=== PATIENT | male | born 1965 | race Two or more races ===

== ENCOUNTER 2025-06-06 04:11 | Inpatient (IN) | payer BC ==
[~2025-06-06] VITALS: Ht 160 cm; Wt 81.6 kg
[2025-06-06] MEDS ORDERED: HYDROMORPHONE 1 MG/1 ML DISP.SYRIN ONE ×2 (05:06→09:33)
[2025-06-06 05:07] LABS: PLATELET COUNT (AUTO) 167 K/uL (152-348); RED BLOOD CELL COUNT(AUTO) 4.33 MIL/uL (4.06-5.63); RED CELL DISTRIBUTION WIDTH 13.4 % (12.1-16.2); WHITE BLOOD COUNT (AUTO) 9.3 K/uL (3.6-10.2)
[2025-06-06] MEDS ORDERED: VANCOMYCIN HCL 500 MG VIAL ONE (05:07)
[2025-06-06] MEDS ORDERED: VANCOMYCIN IV 200 ML ONE (05:07)
[2025-06-06] MEDS ORDERED: CIPR500T5 PO (05:08)
[2025-06-06] MEDS ORDERED: ALPR1TAB7 PO (05:08)
[2025-06-06] MEDS ORDERED: ATOR40TA PO (05:08)
[2025-06-06] MEDS ORDERED: CLIN300C12 PO (05:08)
[2025-06-06] MEDS: HYDROMORPHONE 1 MG/1 ML DISP.SYRIN IV ONE ×2 (05:15→09:36)
[2025-06-06] MEDS: VANCOMYCIN IV 1,500 MG in IV DEXTROSE 5% 250 ML IV ONE (05:21)
[2025-06-06 05:32] LABS: CREATININE 1.2 mg/dL (0.6-1.3); SODIUM SERUM 139.0 mmol/L (136-145); UREA NITROGEN, BLOOD 12.0 mg/dL (7-18)
[2025-06-06 05:38] LABS: ASPARTATE AMINOTRANSFERASE 21.0 U/L (15-37); TOTAL PROTEIN, SERUM 7.4 g/dL (6.4-8.2)
[2025-06-06] MEDS ORDERED: SWABABLE VALVE TRANSFER SET EA MC ONE (07:01)
[2025-06-06] MEDS ORDERED: IOHEXOL 300MG/ML 100 ML INFUS..BTL ONE (07:01)
[2025-06-06] MEDS ORDERED: IV NORMAL SALINE 250 ML IV ONE (07:01)
[2025-06-06] MEDS ORDERED: ONDANSETRON 4 MG/2 ML VIAL ONE (09:33)
[2025-06-06] MEDS: ONDANSETRON 4 MG/2 ML VIAL IV ONE (09:34)
[2025-06-06 10:15] VITALS: BP 130/78
[2025-06-06] MEDS ORDERED: ONDANSETRON 4 MG/2 ML VIAL IV PRN (10:30)
[2025-06-06] MEDS ORDERED: ACETAMINOPHEN 325 MG TABLET PO PRN (10:30)
[2025-06-06] MEDS ORDERED: MAGNESIUM HYDROXIDE 30 ML LIQUID UDC PO PRN (10:30)
[2025-06-06] MEDS: ENOXAPARIN SODIUM 40 MG/0.4 ML DISP.SYRIN SQ SCH (11:28)
[2025-06-06 12:00] VITALS: BP 140/73; TEMP 97.8; O2SAT 97
[2025-06-06] MEDS ORDERED: ERGO500040 PO (12:09)
[2025-06-06] MEDS ORDERED: PARO30TA4 PO (12:09)
[2025-06-06 16:00] VITALS: BP 111/64; TEMP 98.6; O2SAT 97
[2025-06-06] MEDS: ATORVASTATIN 40 MG TABLET PO SCH (18:52)
[2025-06-06] MEDS: ASPIRIN EC 81 MG TABLET.DR PO SCH (18:52)
[2025-06-06 19:30] VITALS: BP 122/75; TEMP 97.7; O2SAT 98
[2025-06-06] MEDS: MORPHINE SULFATE 2 MG/1 ML DISP.SYRIN IV PRN (20:10)
[2025-06-07 05:00] VITALS: BP 109/59; TEMP 97.6; O2SAT 99
[2025-06-07] MEDS: PANTOPRAZOLE SODIUM 40 MG TABLET.DR PO SCH (06:16)
[2025-06-07 07:04] LABS: PLATELET COUNT (AUTO) 169 K/uL (152-348); RED BLOOD CELL COUNT(AUTO) 4.25 MIL/uL (4.06-5.63); RED CELL DISTRIBUTION WIDTH 13.4 % (12.1-16.2); WHITE BLOOD COUNT (AUTO) 6.9 K/uL (3.6-10.2)
[2025-06-07 07:38] LABS: ASPARTATE AMINOTRANSFERASE 14.0 U/L (15-37); CREATININE 1.2 mg/dL (0.6-1.3); SODIUM SERUM 138.0 mmol/L (136-145); TOTAL PROTEIN, SERUM 6.6 g/dL (6.4-8.2); UREA NITROGEN, BLOOD 15.0 mg/dL (7-18)
[2025-06-07] MEDS: PAROXETINE HCL 20 MG TABLET PO SCH (10:06)
[2025-06-07] MEDS: VANCOMYCIN IV 1,000 MG in IV DEXTROSE 5% 250 ML IV SCH (10:10)
[2025-06-07 11:33] VITALS: BP 110/59; TEMP 97.6; O2SAT 96
[2025-06-07 16:00] VITALS: BP 103/55; TEMP 98.1; O2SAT 96
[2025-06-07 19:35] VITALS: BP 113/65; TEMP 98.4; O2SAT 96
[2025-06-08 04:06] VITALS: BP 120/77; TEMP 97.8; O2SAT 97
[2025-06-08 08:46] LABS: CREATININE 1.0 mg/dL (0.6-1.3); SODIUM SERUM 139.0 mmol/L (136-145); UREA NITROGEN, BLOOD 13.0 mg/dL (7-18)
[2025-06-08] MEDS: VANCOMYCIN IV 1,000 MG in IV DEXTROSE 5% 250 ML IV SCH (11:21)
[2025-06-08 11:38] VITALS: BP 137/78; TEMP 98.4; O2SAT 98
[2025-06-08 15:40] VITALS: BP 136/73; TEMP 98; O2SAT 98
[2025-06-08 20:05] VITALS: BP 135/79; TEMP 97.7; O2SAT 98
[2025-06-08] MEDS: ALPRAZOLAM 0.5 MG TABLET PO PRN (21:09)
[2025-06-09 06:00] VITALS: BP 112/65; TEMP 97.4; O2SAT 97
[2025-06-09 11:18] LABS: PLATELET COUNT (AUTO) 222 K/uL (152-348); RED BLOOD CELL COUNT(AUTO) 4.42 MIL/uL (4.06-5.63); RED CELL DISTRIBUTION WIDTH 12.9 % (12.1-16.2); WHITE BLOOD COUNT (AUTO) 7.3 K/uL (3.6-10.2)
[2025-06-09 11:28] LABS: CREATININE 1.1 mg/dL (0.6-1.3); SODIUM SERUM 139.0 mmol/L (136-145); UREA NITROGEN, BLOOD 12.0 mg/dL (7-18)
[2025-06-09 11:32] VITALS: BP 129/70; TEMP 97.3; O2SAT 97
[2025-06-09 15:39] VITALS: BP 128/73; TEMP 97.8; O2SAT 97
[2025-06-09] MEDS: VANCOMYCIN IV 1,250 MG in IV DEXTROSE 5% 250 ML IV SCH (18:16)
[2025-06-09 19:35] VITALS: BP 152/80; TEMP 97.5; O2SAT 96
[2025-06-10 06:39] LABS: PLATELET COUNT (AUTO) 227 K/uL (152-348); RED BLOOD CELL COUNT(AUTO) 4.39 MIL/uL (4.06-5.63); RED CELL DISTRIBUTION WIDTH 13.2 % (12.1-16.2); WHITE BLOOD COUNT (AUTO) 9.1 K/uL (3.6-10.2)
[2025-06-10 06:41] VITALS: BP 118/73; TEMP 98.7; O2SAT 96
[2025-06-10 06:48] LABS: CREATININE 1.2 mg/dL (0.6-1.3); SODIUM SERUM 142.0 mmol/L (136-145); UREA NITROGEN, BLOOD 16.0 mg/dL (7-18)
[2025-06-10] MEDS: ERGOCALCIFEROL 50,000 UNIT CAPSULE PO SCH (10:42)
[2025-06-10 12:00] VITALS: BP 136/76; TEMP 97.8; O2SAT 98
[2025-06-10 16:00] VITALS: BP 115/68; TEMP 97.6; O2SAT 98
[2025-06-10] MEDS: SODIUM HYPOCHLORITE 0.125% (QUARTER STRENGTH) 473 ML BOTTLE TP SCH (17:38)
[2025-06-10 19:55] VITALS: BP 141/81; TEMP 98.1; O2SAT 95
[2025-06-11 04:59] VITALS: BP 128/77; TEMP 97.9; O2SAT 96
[2025-06-11 05:17] LABS: PLATELET COUNT (AUTO) 236 K/uL (152-348); RED BLOOD CELL COUNT(AUTO) 4.42 MIL/uL (4.06-5.63); RED CELL DISTRIBUTION WIDTH 13.1 % (12.1-16.2); WHITE BLOOD COUNT (AUTO) 9.4 K/uL (3.6-10.2)
[2025-06-11 05:30] LABS: CREATININE 1.1 mg/dL (0.6-1.3); SODIUM SERUM 138.0 mmol/L (136-145); UREA NITROGEN, BLOOD 19.0 mg/dL (7-18)
[2025-06-11 11:13] VITALS: BP 121/64; TEMP 98.8; O2SAT 98
[2025-06-11 15:32] VITALS: BP 133/78; TEMP 98.5; O2SAT 96
[2025-06-11] MEDS: MIRALAX 17 GM POWD.PACK PO SCH (15:42)
[2025-06-11 19:00] VITALS: BP 152/84; TEMP 98.1; O2SAT 96
[2025-06-11] MEDS: VANCOMYCIN IV 1,250 MG in IV DEXTROSE 5% 250 ML IV SCH (20:00)
[2025-06-12 06:30] VITALS: BP 119/70; TEMP 97.8; O2SAT 94
[2025-06-12 07:24] LABS: PLATELET COUNT (AUTO) 238 K/uL (152-348); RED BLOOD CELL COUNT(AUTO) 4.61 MIL/uL (4.06-5.63); RED CELL DISTRIBUTION WIDTH 13.2 % (12.1-16.2); WHITE BLOOD COUNT (AUTO) 8.6 K/uL (3.6-10.2)
[2025-06-12 07:27] LABS: CREATININE 1.1 mg/dL (0.6-1.3); SODIUM SERUM 142.0 mmol/L (136-145); UREA NITROGEN, BLOOD 15.0 mg/dL (7-18)
[2025-06-12 11:36] VITALS: BP 137/72; TEMP 97.9; O2SAT 96
[2025-06-12 15:39] VITALS: BP 118/73; TEMP 98.3; O2SAT 96
[2025-06-12 19:40] VITALS: BP 122/70; TEMP 98.5; O2SAT 95
[2025-06-12] MEDS: CEFEPIME HCL 2 GM in IV DEXTROSE 5% 100 ML IV SCH (21:17)
[2025-06-13 06:41] VITALS: BP 117/65; TEMP 97.9; O2SAT 94
[2025-06-13 07:16] LABS: PLATELET COUNT (AUTO) 236 K/uL (152-348); RED BLOOD CELL COUNT(AUTO) 4.46 MIL/uL (4.06-5.63); RED CELL DISTRIBUTION WIDTH 13.1 % (12.1-16.2); WHITE BLOOD COUNT (AUTO) 8.5 K/uL (3.6-10.2)
[2025-06-13 07:42] LABS: CREATININE 0.9 mg/dL (0.6-1.3); SODIUM SERUM 139.0 mmol/L (136-145); UREA NITROGEN, BLOOD 14.0 mg/dL (7-18)
[2025-06-13 11:34] VITALS: BP 117/64; TEMP 98; O2SAT 97
[2025-06-13] MEDS: CEFTRIAXONE 1 G in IV DEXTROSE 5% 50 ML IV SCH (11:50)
[2025-06-13 16:00] VITALS: BP 126/65; TEMP 97.9; O2SAT 98
[2025-06-13 19:51] VITALS: BP 134/66; TEMP 98; O2SAT 98
[2025-06-14 05:46] VITALS: BP 121/70; TEMP 97.9; O2SAT 96
[2025-06-14 06:56] LABS: PLATELET COUNT (AUTO) 237 K/uL (152-348); RED BLOOD CELL COUNT(AUTO) 4.30 MIL/uL (4.06-5.63); RED CELL DISTRIBUTION WIDTH 13.2 % (12.1-16.2); WHITE BLOOD COUNT (AUTO) 9.8 K/uL (3.6-10.2)
[2025-06-14 07:14] LABS: CREATININE 1.0 mg/dL (0.6-1.3); SODIUM SERUM 139.0 mmol/L (136-145); UREA NITROGEN, BLOOD 13.0 mg/dL (7-18)
[2025-06-14 10:53] VITALS: BP 113/66; TEMP 98.2; O2SAT 96
[2025-06-14] MEDS ORDERED: TRAM50TA2 PO (11:36)
[2025-06-14] MEDS ORDERED: SODI473S8 TP (11:36)
[2025-06-14] MEDS ORDERED: ALPR1TAB7 PO (12:59)
[2025-06-14] MEDS ORDERED: DOXY-326 PO (13:37)
== END 2025-06-14 13:30 | disposition home or self-care (01) | DRG 580 ==
LOC: ER 04:26 → MEDSURG3 10:35
PROVIDERS: ADMIT Nurse Practitioner Family; ATTEND Nurse Practitioner Family
PROC: 0KBQ0ZZ Excision of Right Upper Leg Muscle, Open Approach (ICD-10-PCS; principal; 2025-06-10)
PROC: 05HB33Z Insertion of Infusion Device into Right Basilic Vein, Percutaneous Approach (ICD-10-PCS; 2025-06-12)
DX: L03.115 Cellulitis of right lower limb (principal); E44.1 Mild protein-calorie malnutrition; M60.051 Infective myositis, right thigh; L02.415 Cutaneous abscess of right lower limb; E78.5 Hyperlipidemia, unspecified; F41.9 Anxiety disorder, unspecified; S71.111A Laceration without foreign body, right thigh, initial encounter; W26.9XXA Contact with unspecified sharp object(s), initial encounter; Y92.61 Building [any] under construction as the place of occurrence of the external cause; Y99.0 Civilian activity done for income or pay; E88.09 Other disorders of plasma-protein metabolism, not elsewhere classified; E66.9 Obesity, unspecified; Z68.31 Body mass index [BMI] 31.0-31.9, adult; S70.11XA Contusion of right thigh, initial encounter; R26.81 Unsteadiness on feet; Z79.899 Other long term (current) drug therapy
CPT/HCPCS: 36415; 73700; 83735; 84100; 85025; 85610; 86140; 87040; 93005; A4663; G0378; J0692; J0696; J1171; J1650; J2270; J2405; J3373; J7050; Q9967